=== PATIENT | male | born 1975 | race African-American/Black ===

== ENCOUNTER 2018-04-30 22:21 | Emergency (ER) | payer OTHER ==
[~2018-04-30] VITALS: Ht 160 cm; Wt 68.0 kg
[~2018-04-30 22:21] MED LIST: CLARITIN10 M2; DERMOLATE ANTI-I2 GM TP; LISINOPRIL5 MG; NASAL SPRAY30 ML
[2018-05-01] MEDS ORDERED: TRIAMCINOLONE A80 G2 TOP (01:12)
[2018-05-01 01:18] VITALS: BP 132/91
== END 2018-05-01 01:19 | disposition home or self-care (01) ==
LOC: ER 22:21
DX: L30.9 Dermatitis, unspecified (principal); F17.210 Nicotine dependence, cigarettes, uncomplicated; I10 Essential (primary) hypertension; Z88.2 Allergy status to sulfonamides